=== PATIENT | male | born 1960 | race Caucasian/White ===

== ENCOUNTER 2024-09-20 14:52 | Inpatient (IN) | payer MEDICARE, OTHER ==
[~2024-09-20] VITALS: Ht 188 cm; Wt 80.8 kg
[2024-09-20 15:31] LABS: EOSINOPHILS # (AUTO) 0.2 K/uL (0.0-0.7); EOSINOPHILS % (AUTO) 4.8 % (0.0-6.0); HEMATOCRIT 31 % (39-51); HEMOGLOBIN 10.6 g/dL (13.5-17.5); LYMPHOCYTES # (AUTO) 1.4 K/uL (0.8-4.8); LYMPHOCYTES % (AUTO) 30.7 % (20.0-44.0); MEAN CORPUSCULAR HEMOGLOBIN 34 PG (26.0-33.0); MEAN CORPUSCULAR HGB CONC 35 g/dl (31.0-36.0); MEAN CORPUSCULAR VOLUME 97 fL (80-96); MONOCYTES # (AUTO) 0.5 K/uL (0.1-1.30); MONOCYTES % (AUTO) 10.4 % (2.0-12.0); NEUTROPHILS # (AUTO) 2.4 K/uL (1.8-8.9); NEUTROPHILS % (AUTO) 53.1 % (43.0-81.0); PLATELET COUNT (AUTO) 115 K/uL (150-450); RED BLOOD CELL COUNT(AUTO) 3.17 MIL/uL (4.5-6.0); RED CELL DISTRIBUTION WIDTH 15.1 % (11.5-15.0); WHITE BLOOD COUNT (AUTO) 4.5 K/uL (4.3-11.0)
[2024-09-20 15:46] LABS: ALBUMIN 3.2 g/dL (3.4-5.0); BILIRUBIN,DIRECT 0.1 mg/dL (0.0-0.2); BILIRUBIN,TOTAL 0.3 mg/dL (0.2-1.0); CALCIUM, SERUM 8.9 mg/dL (8.5-10.1); CREATININE 0.6 mg/dL (0.6-1.3); TOTAL PROTEIN, SERUM 6.4 g/dL (6.4-8.2)
[2024-09-20] MEDS ORDERED: KETOROLAC TROMETHAMINE INJ 30 MG/ML VIAL ONE (15:52)
[2024-09-20] MEDS: IV NS 0.9% 1,000 ML BAG IV ONE (16:03)
[2024-09-20] MEDS: KETOROLAC TROMETHAMINE 15 MG/ML VIAL IV ONE (16:04)
[2024-09-20 16:25] VITALS: O2SAT 100
[2024-09-20 16:25] LABS: APPEARANCE,URINE CLEAR (CLEAR); BILIRUBIN,URINE NEGATIVE (NEGATIVE); BLOOD, URINE NEGATIVE Ery/uL (NEGATIVE); COLOR,URINE YELLOW (YELLOW); KETONES,URINE NEGATIVE (NEGATIVE); LEUKOCYTE ESTERASE ,URINE NEGATIVE (NEGATIVE); NITRITE, URINE NEGATIVE (NEGATIVE); PROTEIN,URINE NEGATIVE (NEGATIVE); UGLUCOSE NEGATIVE (NEGATIVE); UROBILINOGEN,URINE 0.2 EU/dL (0.2)
[2024-09-20] MEDS ORDERED: DICY20TA11 PO (17:41)
[2024-09-20] MEDS ORDERED: ATOR40TA PO (17:41)
[2024-09-20] MEDS ORDERED: ALBU18HF2 IH (17:41)
[2024-09-20] MEDS ORDERED: ATOR20TA PO (17:41)
[2024-09-20 20:00] VITALS: BP 136/82; TEMP 97.5; O2SAT 98
[2024-09-20] MEDS ORDERED: ALBUTEROL FS 2.5 MG/3 ML VIAL.NEB NEB PRN (20:00)
[2024-09-20] MEDS ORDERED: ACETAMINOPHEN 325 MG TABLET PO PRN (20:00)
[2024-09-20] MEDS ORDERED: MAGNESIUM HYDROXIDE 30 ML UDC PO PRN (20:00)
[2024-09-20] MEDS ORDERED: Z GUARD REMEDY 4 OZ OINT TP PRN (20:00)
[2024-09-20] MEDS ORDERED: MAG HYDROX/AL HYDROX/SIMETH 30 ML UDC PO PRN (20:00)
[2024-09-20] MEDS ORDERED: ONDANSETRON HCL/PF 4 MG/2 ML VIAL IVP PRN (20:00)
[2024-09-20] MEDS: LIDOCAINE 5% (PATCH) 1 EA PATCH TP SCH (20:12)
[2024-09-20] MEDS ORDERED: Medication Not On Formulary EA (Atorvastatin Calcium (Lipitor) 20 MG) PO SCH (22:00)
[2024-09-20] MEDS: ATORVASTATIN 40 MG TABLET PO SCH (22:13)
[2024-09-20] MEDS: DICYCLOMINE HCL 10 MG CAPSULE PO PRN (22:13)
[2024-09-21 07:09] LABS: BASOPHILS % (AUTO) 0.9 % (0.0-2.0); EOSINOPHILS # (AUTO) 0.3 K/uL (0.0-0.7); EOSINOPHILS % (AUTO) 6.8 % (0.0-6.0); HEMATOCRIT 32 % (39-51); HEMOGLOBIN 10.8 g/dL (13.5-17.5); LYMPHOCYTES # (AUTO) 1.2 K/uL (0.8-4.8); LYMPHOCYTES % (AUTO) 27.4 % (20.0-44.0); MEAN CORPUSCULAR HEMOGLOBIN 33 PG (26.0-33.0); MEAN CORPUSCULAR HGB CONC 34 g/dl (31.0-36.0); MEAN CORPUSCULAR VOLUME 97 fL (80-96); MONOCYTES # (AUTO) 0.4 K/uL (0.1-1.30); MONOCYTES % (AUTO) 8.9 % (2.0-12.0); NEUTROPHILS # (AUTO) 2.5 K/uL (1.8-8.9); PLATELET COUNT (AUTO) 115 K/uL (150-450); RED BLOOD CELL COUNT(AUTO) 3.32 MIL/uL (4.5-6.0); WHITE BLOOD COUNT (AUTO) 4.5 K/uL (4.3-11.0)
[2024-09-21 07:25] LABS: CALCIUM, SERUM 8.5 mg/dL (8.5-10.1); CREATININE 0.8 mg/dL (0.6-1.3); MAGNESIUM 2.2 mg/dL (1.8-2.4); PHOSPHORUS 2.8 mg/dL (2.5-4.9); POTASSIUM 4.1 mmol/L (3.5-5.1)
[2024-09-21 07:30] VITALS: BP 134/81; TEMP 98.2; O2SAT 100
[2024-09-21] MEDS: METHOCARBAMOL (750MG) 750 MG TABLET PO SCH (12:02)
[2024-09-21] MEDS: PREGABALIN 25 MG CAPSULE PO SCH (12:02)
[2024-09-21 16:00] VITALS: BP 127/86; TEMP 98.1; O2SAT 99
[2024-09-21 20:00] VITALS: BP 122/70; TEMP 97.9; O2SAT 98
[2024-09-21] MEDS: TAMSULOSIN 0.4 MG CAP.SR.24H PO SCH (21:23)
[2024-09-22 07:30] VITALS: BP 111/78; TEMP 98.1; O2SAT 97
[2024-09-22] MEDS: HYDROCODONE/APAP 5/325MG TABLET PO PRN (10:20)
[2024-09-22 16:00] VITALS: BP 128/92; TEMP 97.3; O2SAT 97
[2024-09-22] MEDS: PREGABALIN 25 MG CAPSULE PO SCH (16:51)
[2024-09-22 20:00] VITALS: BP 119/78; TEMP 97.9; O2SAT 96
[2024-09-23 08:00] VITALS: BP 115/77; TEMP 98.8; O2SAT 94
== END 2024-09-23 15:56 | DRG 552 ==
LOC: ER 14:59 → MED 17:54
PROVIDERS: ATTEND Nurse Practitioner Family
DX: M47.816 Spondylosis without myelopathy or radiculopathy, lumbar region (principal); E44.1 Mild protein-calorie malnutrition; D69.6 Thrombocytopenia, unspecified; D53.9 Nutritional anemia, unspecified; E78.5 Hyperlipidemia, unspecified; E88.09 Other disorders of plasma-protein metabolism, not elsewhere classified; G89.29 Other chronic pain; M48.07 Spinal stenosis, lumbosacral region; M47.817 Spondylosis without myelopathy or radiculopathy, lumbosacral region; R41.81 Age-related cognitive decline; R53.81 Other malaise; Z68.22 Body mass index [BMI] 22.0-22.9, adult; K58.9 Irritable bowel syndrome, unspecified
CPT/HCPCS: 36415; 80048-TC; 80076-TC; 83690-TC; 83735-TC; 84100-TC; 85025-TC; 97110-TC; 97116-TC; 97530-TC; G0378; J1885; J7030